=== PATIENT | male | born 1955 | race Caucasian/White ===

== ENCOUNTER 2017-05-08 17:51 | Emergency (ER) | payer OTHER ==
--- NOTE | 2017-05-08 18:47 | EDPHY ---
H & P Time Seen by Provider: 05/08/17 18:35 HPI/ROS: Chief complaint. Possible bowel impaction HPI. 61-year-old male had shoulder surgery 6 days ago. He has been using pain medication. He has had decreasing bowel movements and having to increase strain and having small amounts of hard stool. He did not have bowel movements on Friday or Friday. At small bowel movement yesterday. He has been using some fleets enema with no relief. He has some crampy slight left lower quadrant abdominal pain. His shoulder was checked by the surgeon today and found to be healing well without infection. No vomiting. ROS Constitutional. no fever/chills, no weakness Eyes. no problems with vision ENT. no sore throat, no nasal drainage Cardiovascular. no chest pain Respiratory. no shortness of breath, no cough Abdominal. Left lower quadrant abdominal pain and constipation . no problems urinating MS. no calf pain/swelling, no neck/back pain, no joint pain Skin. no rash Lymph. no swollen glands Neuro. no headache, no dizziness, no difficulty walking or with speech Past Medical/Surgical History: Recent shoulder surgery, back surgery, GERD, dyslipidemia Social History: , nonsmoker, no alcohol Smoking Status: Never smoked Physical Exam: General Appearance: Alert well-developed male moderate distress vital signs are stable Eyes: Pupils equal and round no pallor or injection. ENT, Mouth: Mucous membranes are moist. Respiratory: There are no retractions, lungs are clear to auscultation. Cardiovascular: Regular rate and rhythm. Gastrointestinal: Abdomen is soft and nontender, no masses, bowel sounds normal. Rectal exam shows hard stool Neurological: Awake and alert, sensory and motor exams grossly normal. Skin: Warm and dry, no rashes. Musculoskeletal: Neck is supple nontender. Extremities symmetrical, full range of motion. Psychiatric: Patient is oriented X 3, there is no agitation. Constitutional: Initial Vital Signs Temperature (C) 36.4 C 05/08/17 17:54 Heart Rate 77 05/08/17 17:54 Respiratory Rate 17 05/08/17 17:54 Blood Pressure 143/97 H 05/08/17 17:54 O2 Sat (%) 99 05/08/17 17:54 O2 Delivery Mode Room Air Allergies/Adverse Reactions: No Known Allergies Allergy (Unverified 01/28/16 09:36) Home Medications: Medication Instructions Recorded Aspirin 81mg (*) 01/28/16 Lipitor 80 mg 01/28/16 Niaspan 1000 mg (*) 01/28/16 Protonix 01/28/16 ZYRTEC 01/28/16 Zetia 01/28/16 Medical Decision Making Procedures: Manual disimpaction Soap suds enema ED Course/Re-evaluation: Re-evaluation 8:10 p.m.. Patient has had 3 good bowel movements and feels much better. Symptoms of discomfort are relieved. Patient and I discussed treatment plan including criteria for return importance of follow-up and further evaluation. He expresses understanding and agrees Differential Diagnosis: Constipation and fecal impaction secondary to narcotic use after surgery. I considered diverticulitis, small-bowel obstruction as well Departure - Departure Disposition: Home, Routine, Self-Care Clinical Impression: Fecal impaction in rectum Condition: Good Instructions: Constipation (ED), High Fiber Diet (ED) Additional Instructions: For the next 1-2 days increase fluids. MiraLax and Metamucil. Fruit and prune juice. Return for worsening symptoms. Referrals: Mick Rebolledo, [Primary Care Provider] - 1 day, if not improved
[2017-05-08 20:21] VITALS: BP 147/93; PULSE 78; RESP 20; TEMP 97.9; O2SAT 95
== END 2017-05-08 20:20 | disposition home or self-care (01) ==
DX: K56.41 Fecal impaction (principal); Z79.82 Long term (current) use of aspirin